=== PATIENT | male | born 1945 | race Two or more races ===

== ENCOUNTER 2016-06-16 21:34 | Emergency (ER) | payer BC, OTHER ==
[2016-06-16] MEDS ORDERED: ACETAMINOPHEN 325 MG TABLET (FP) ONE (21:41)
[2016-06-16 21:47] VITALS: BMI 25.0
[2016-06-16] MEDS ORDERED: ACETAMINOPHEN 325 MG TABLET (FP) PO ONE (21:48)
[2016-06-16] MEDS ORDERED: SODIUM CHLORIDE 1,000 ML IV STA (22:58)
[2016-06-16 23:29] LABS: BASOPHIL 0.4 % (0-2.0); MCH 31.6 pg (25.7-33.7); MCHC 34.3 g/dl (32.0-35.9); NEUTROPHILS 70.7 % (42.8-82.8); PLATELET COUNT 171 K/MM3 (134-434); WHITE BLOOD COUNT 6.5 K/mm3 (4.0-10.0)
--- NOTE | 2016-06-16 23:30 | PDOC ---
History of Present Illness - General Chief Complaint: Allergic Reaction Stated Complaint: ALLERGIC REACTION Time Seen by Provider: 06/16/16 22:36 History Source: Patient Exam Limitations: No Limitations - History of Present Illness Initial Comments: 06/16/16 23:21 71yo Male patient w/ PmHx: HTN presents to ED c/o allergic reaction. Patient states he was recently started on Nifedipine ER 30mg daily by PMD, on 2nd day he experienced a persistent cough. Today patient reports he was unable to move; he states he had to be lifted to car by brother in-law. Patient also reports: tongue swelling with difficulty swallowing prior to inability to move today. Associated fever (101.0). Patient denies CP, back pain, n/v/d, diff breathing, numbness, tingling, pins and needles, headache, blurred vision, or any other complaints at this time. Timing/Duration: intermittent, resolved prior to arrival Severity: moderate Modifying Factors: worse with: cold therapy, eating, immobilization, medication , movement, rest, other Associated Symptoms: reports: weakness NIH Stroke Scale - Last Known Well Date/Time & Onset Date Last Known Well: 06/16/16 Time Last Known Well: 21:00 - Initial Evaluation Level of consciousness: Alert Ask patient the month and their age: Answers both correctly Ask patient to open & close eyes; make fist and let go: Obeys both correctly Best gaze (horizontal eye movement): Normal Visual field testing: No visual field loss Facial paresis (Show teeth/raise eyebrows/close eyes tight): Normal symmetrical movement Motor Function: Left Arm: Normal Motor Function: Right Arm: Normal (extends arm 90 (or 45) degrees for 10 seconds without drift Motor Function: Left Leg: Normal (extends leg 30 degrees for 5 seconds without drift) Motor Function: Right Leg: Normal (extends leg 30 degrees for 5 seconds without drift) Sensory(Use pinprick test arms,legs,trunk,face/side to side): Normal Best language (Describe picture, name items, read sentences): No Aphasia Dysarthria (read several words): Normal articulation Extinction and Inattention: No abnormality - Total Score NIH Stroke Scale Score: 0 Past History - Travel Traveled outside of the country in the last 30 days: No Close contact w/someone who was outside of country & ill: No - Past Medical History Allergies/Adverse Reactions: Allergies Allergy/AdvReac Type Severity Reaction Status Date / Time Influenza Virus Vaccines Allergy Verified 06/16/16 23:21 Home Medications: Ambulatory Orders Nifedipine ER [Procardia Xl -] 30 mg PO DAILY 06/16/16 HTN: Yes - Psycho/Social/Smoking Cessation Hx Suicidal Ideation: No Smoking History: Never smoked Review of Systems - Review of Systems Able to Perform ROS?: Yes Is the patient limited Afghan proficient: No Constitutional: Yes: Weakness. No: Chills, Fever HEENTM: No: Blurred Vision, Double Vision, Nose Congestion, Nose Bleeding Respiratory: No: Cough, Shortness of Breath, SOB with Exertion, SOB at Rest, Stridor, Wheezing, Hemoptysis Cardiac (ROS): No: Chest Pain, Lightheadedness, Palpitations, Syncope, Chest Tightness ABD/GI: No: Constipated, Diarrhea, Nausea, Poor Appetite, Poor Fluid Intake, Rectal Bleeding, Vomiting : No: Dysuria, Flank Pain, Hematuria, Urgency Musculoskeletal: Yes: Muscle Weakness. No: Back Pain, Joint Pain, Joint Stiffness Integumentary: No: Bruising, Rash Neurological: No: Headache, Seizure, Weakness, Ataxia, Dizziness All Other Systems: Reviewed and Negative *Physical Exam - Vital Signs Last Vital Signs Temp Pulse Resp BP Pulse Ox 101.5 F H 100 H 16 144/80 97 06/16/16 21:46 06/16/16 21:46 06/16/16 21:46 06/16/16 21:46 06/16/16 21:46 - Physical Exam General Appearance: Yes: Nourished, Appropriately Dressed. No: Apparent Distress, Mild Distress, Moderate Distress, Severe Distress HEENT: positive: EOMI, MEGHAN, Normal ENT Inspection, Normal Voice, Symmetrical, TMs Normal, Pharynx Normal Neck: positive: Trachea midline, Supple. negative: Stridor, Lymphadenopathy (R) , Lymphadenopathy (L) Respiratory/Chest: positive: Lungs Clear, Normal Breath Sounds. negative: Respiratory Distress, Accessory Muscle Use, Labored Respiration, Rapid RR, Crackles, Rales, Rhonchi, Stridor, Wheezing Cardiovascular: positive: Regular Rhythm, Regular Rate. negative: Edema, JVD, Murmur Gastrointestinal/Abdominal: positive: Normal Bowel Sounds, Soft. negative: Distended, Guarding, Rebound, Tenderness Musculoskeletal: positive: Normal Inspection. negative: CVA Tenderness Extremity: positive: Normal Capillary Refill, Normal Inspection, Normal Range of Motion. negative: Pedal Edema, Swelling, Calf Tenderness, Erythema, Inflammation Integumentary: positive: Normal Color, Dry, Warm. negative: Erythema, Moist, Hives, Rash, Swelling Neurologic: positive: pbx technician II-XII NML intact, Fully Oriented, Alert, Normal Mood/ Affect, Normal Response, Motor Strength 06/30 ED Treatment Course - LABORATORY CBC & Chemistry Diagram: 06/16/16 23:10 06/16/16 23:10 - RADIOLOGY Radiology Studies Ordered: Category Date Time Status HEAD CT WITHOUT CONTRAST [CT] Stat CT Scan 06/16/16 22:58 Ordered CHEST PA & LAT [RAD] Stat Radiology 06/16/16 22:58 Ordered *DC/Admit/Observation/Transfer Diagnosis at time of Disposition: Allergic reaction Qualifiers: Encounter type: initial encounter Qualified Code(s): T78.40XA - Allergy, unspecified, initial encounter - Discharge Dispostion Disposition: HOME Condition at time of disposition: Improved Admit: No - Patient Instructions Printed Discharge Instructions: DI for Adverse Drug Reaction -- Allergic Additional Instructions: FOLLOW UP WITH DR. WHITAKER THIS WEEK FOR FURTHER EVALUATION. DISCONTINUE USE OF NIFEDIPINE ER 30MG. RETURN IF SYMPTOMS WORSEN OR ANY CONCERNS FOR FURTHER EVALUATION. Print Language: PANAMANIAN
[2016-06-17 00:33] LABS: ALBUMIN 3.5 g/dl (3.4-5.0); ANION GAP 8 (8-16); BILIRUBIN,TOTAL 0.3 mg/dL (0.2-1.0); CO2 28 mmol/L (21-32); CREATININE 0.8 mg/dL (0.7-1.3); GLUCOSE,RANDOM 110 mg/dL (74-106); SGOT/AST 20 U/L (15-37); SGPT/ALT 28 U/L (12-78); TOT PROT 6.5 g/dl (6.4-8.2)
[2016-06-17 00:34] LABS: ALK PHOS 85 U/L (45-117)
[2016-06-17 02:30] LABS: URINE APPEARANCE CLEAR; URINE BILIRUBIN NEGATIVE (NEGATIVE); URINE COLOR COLORLESS; URINE GLUCOSE (UA) NEGATIVE (NEGATIVE); URINE KETONE NEGATIVE (NEGATIVE); URINE LEUK ESTERASE NEGATIVE (NEGATIVE); URINE NITRITE NEGATIVE (NEGATIVE); URINE PROTEIN NEGATIVE (NEGATIVE); URINE UROBILINOGEN NEGATIVE E.U./dl (0.2-1.0)
[2016-06-17 02:49] LABS: URINE BLOOD 2+ (NEGATIVE)
[2016-06-17 02:50] LABS: URINE RBC 5 /hpf (0-3); URINE WBC <1 /hpf (3-5)
[2016-06-17 04:55] VITALS: BP 131/56; PULSE 72; TEMP 98.1
--- NOTE | 2016-06-17 09:55 | EKG ---
Test Reason : Blood Pressure : / mmHG Vent. Rate : 077 BPM Atrial Rate : 077 BPM P-R Int : 164 ms QRS Dur : 084 ms QT Int : 386 ms P-R-T Axes : 017 038 017 degrees QTc Int : 436 ms NORMAL SINUS RHYTHM NORMAL ECG NO PREVIOUS ECGS AVAILABLE Confirmed by SANDRO MCHUGH MD ([id number]) on 06/17/2016 9:55:22 AM Referred By: Confirmed By:SANDRO MCHUGH MD
== END 2016-06-17 04:55 | disposition home or self-care (01) ==
LOC: JER 21:34
PROC: 3E0337Z Introduction of Electrolytic and Water Balance Substance into Peripheral Vein, Percutaneous Approach (ICD-10-PCS; principal; 2016-06-16)
DX: R53.1 Weakness (principal); T46.1X5A Adverse effect of calcium-channel blockers, initial encounter; Y92.038 Other place in apartment as the place of occurrence of the external cause
CPT/HCPCS: 36415; 70450-TC; 71020-TC; 80053; 81003; 81015; 85025; 87040; 93005; 93010; 96360; 99282-25